=== PATIENT | female | born 1955 | race Caucasian/White ===

== ENCOUNTER 2016-07-07 06:39 | Day surgery (SDC) | payer MEDICAID ==
[~2016-07-07] VITALS: Ht 162.6 cm
[~2016-07-07 06:39] MED LIST: BIOTIN10000 MC1 PO; BUTRANS1 EAC1 TP; CALCIUM500 M1 PO; CELEXA40 MG PO; DELTASONE DPS20 MG PO; ELAVIL-DPS10 MG PO; ELAVIL-DPS50 MG PO; FLEXERIL-DPS10 MG PO; FLONASE 0.05% D16 GM NS; HYDROCODONE 5MG/5 MG PO; LEVAQUIN DPS500 MG PO; MIRALAX DPS17 GM PO; NEURONTIN DPS300 MG PO; NILSTAT SUSP DPS5 ML PO; NORVASC DPS10 MG PO; NORVASC2.5 MG PO; NUCYNTA75 MG PO; OXY IR DPS5 MG PO; PRILOSEC DPS20 MG PO; PROAIR HFA8.5 GM IH; SENOKOT S1 TAB PO; SYNTHROID DP0.125 MG PO; SYNTHROID112 MCG PO; THERA1 EACH PO; ULTRAM DPS50 MG PO; XARELTO10 MG PO
--- NOTE | 2016-07-08 07:43 | OR ---
ADMIT: 07/07/2016 RM/LOC: [facility] MR#: [id number] [address] [id number] [place] [id number] [place] [address] Operative/Delivery Room Report SEX: F AGE: 60 : 1955 SURGERY DATE: 07/07/2016 SURGEON: Jose A Douglas MD CONTROL VALVE MECHANIC: None. PREPROCEDURE DIAGNOSES: 1. Lumbar spondylosis. 2. Lumbago. POSTPROCEDURE DIAGNOSES: 1. Lumbar spondylosis. 2. Lumbago. PROCEDURE PERFORMED: Left L3, L4, L5, and S1 medial branch radiofrequency thermocoagulation. INDICATIONS FOR PROCEDURE: The patient is a pleasant female with history of chronic low back pain secondary to above-mentioned diagnosis, comes here for planned left-sided lumbar radiofrequency ablation. ANESTHESIA: Local without sedation. ESTIMATED BLOOD LOSS: Zero. COMPLICATIONS: None immediately evident. DESCRIPTION OF THE PROCEDURE: After the patient was seen in the preoperative area, vitals signs were taken. Prior to the procedure, the risks, benefits, and alternative therapies were discussed at length. Patient consent was obtained and updated. The patient was taken to the fluoroscopy suite and placed on the fluoroscopy table in the prone position. Pressure points were padded to comfort, monitors applied, and a timeout performed. ADMIT: 07/07/2016 RM/LOC: [facility] MR#: [id number] [place] [id number] [place] [id number] [place] [id number] Operative/Delivery Room Report SEX: F AGE: 60 : 1955 Fluoroscopy was brought in to identify the transverse process of the left- sided L3, L4, L5, and S1. To anesthetize the skin, a spinal cannula was placed near the junction of pedicle and transverse process. Once we obtained appropriate parameters for sensory motor testing, we proceeded with radiofrequency thermocoagulation at each level, which consisted of 80 degrees for 90 seconds. The patient tolerated the procedure well. The patient did not feel any stimulation below her knees. The patient was discharged to post anesthesia care without any immediate complications. PLAN: Discharge instructions were given, followup scheduled. The patient was discharged home with a piledriver carpenter. Jose A Douglas MD/ [facility]ele JOB #: [id number] CC: Jose A Douglas, Attending Physician Antonio Delgado, Family Physician
== END 2016-07-07 08:25 | disposition home or self-care (01) ==
LOC: SSS 06:39
PROC: 3E0T3TZ Introduction of Destructive Agent into Peripheral Nerves and Plexi, Percutaneous Approach (ICD-10-PCS; principal; 2016-07-07)
PROC: BR16YZZ Fluoroscopy of Lumbar Facet Joint(s) using Other Contrast (ICD-10-PCS; principal; 2016-07-07)
DX: G89.29 Other chronic pain (principal); M47.27 Other spondylosis with radiculopathy, lumbosacral region; G56.00 Carpal tunnel syndrome, unspecified upper limb; M43.16 Spondylolisthesis, lumbar region; G47.31 Primary central sleep apnea; M47.812 Spondylosis without myelopathy or radiculopathy, cervical region; G43.109 Migraine with aura, not intractable, without status migrainosus; M51.36 Other intervertebral disc degeneration, lumbar region; M50.10 Cervical disc disorder with radiculopathy, unspecified cervical region; Z79.899 Other long term (current) drug therapy; Z90.710 Acquired absence of both cervix and uterus; Z98.890 Other specified postprocedural states

== ENCOUNTER → 2016-07-13 | Outpatient (CLI) | payer MEDICAID | END | disposition home or self-care (01) | LOC: RAD.S 08:09 | DX: Z00.00 Encounter for general adult medical examination without abnormal findings (principal); R93.8 Abnormal findings on diagnostic imaging of other specified body structures; I51.7 Cardiomegaly; K76.0 Fatty (change of) liver, not elsewhere classified ==

== ENCOUNTER → 2016-09-21 | Outpatient (CLI) | payer OTHER | END | disposition home or self-care (01) | LOC: RAD.S 09-16 10:10 | DX: Z12.31 Encounter for screening mammogram for malignant neoplasm of breast (principal); R92.1 Mammographic calcification found on diagnostic imaging of breast ==